=== PATIENT | female | born 1965 | race Caucasian/White ===

== ENCOUNTER 2022-04-26 03:58 | Outpatient (CLI) | payer OTHER, SELFPAY ==
[2022-04-26 12:49] LABS: Abs Immature Grans 0.04 10^3/uL (0.0-0.06); Absolute Basophil Count 0.01 10^3/uL (0.0-0.2); Absolute Lymphocyte Count 1.07 10^3/uL (1.2-3.4); Basophils % 0.1; HCT 35.1 % (36.0-46.0); HGB 11.5 g/dL (11.2-15.7); Immature Grans % 0.4; Lymphocytes % 9.5; MCH 33.3 pg (27.0-33.0); MCHC 32.8 % (32.0-36.0); MCV 102 fL (80-95); MPV 10.9 fL (8.0-11.0); Monocytes % 5.9; Neutrophils % 84.1; Platelet Count 233 10^3/uL (130-400); RBC 3.45 10^6/uL (3.93-5.22); RDW-SD 45.1 fL; WBC 11.28 10^3/uL (4.4-10.8)
[2022-04-26 12:50] LABS: Absolute Monocyte Count 0.67 10^3/uL (0.1-0.8); Absolute Neutrophil Count 9.49 10^3/uL (1.2-6.7)
[2022-04-26 13:15] LABS: ALT 25 U/L (14-59); AST 18 U/L (15-37); Albumin 3.7 g/dL (3.4-5.0); Alkaline Phosphatase 67 U/L (46-116); Anion Gap 5.4 mmol/L (3-11); BUN 13 mg/dL (7-18); Bilirubin, Total 0.4 mg/dL (0.2-1.0); CO2 32.6 mmol/L (21.0-32.0); CREATININE 0.7 mg/dL (0.55-1.02); Calcium 8.7 mg/dL (8.5-10.1); Chloride 100 mmol/L (98-107); Estimated GFR 102.07 (mL/min/1.73m2); Glucose 112 mg/dL (74-106); Sodium 138 mmol/L (136-145); Total Protein 8.4 g/dL (6.4-8.2); Uric Acid 3.3 mg/dL (2.6-6.0)
[2022-04-26 13:28] LABS: Potassium 2.8 mmol/L (3.5-5.1)
== END 2022-04-26 03:59 | disposition home or self-care (01) ==
LOC: LBO 03:58
PROVIDERS: PCP Family Medicine; Visit Provider Internal Medicine Hematology
DX: C90.00 Multiple myeloma not having achieved remission (principal)
CPT/HCPCS: 36415; 80053; 84550; 85025

== ENCOUNTER 2022-05-03 02:24 | Outpatient (CLI) | payer OTHER, SELFPAY ==
[2022-05-03 08:27] LABS: Abs Immature Grans 0.02 10^3/uL (0.0-0.06); Absolute Basophil Count 0.01 10^3/uL (0.0-0.2); Absolute Lymphocyte Count 0.72 10^3/uL (1.2-3.4); Absolute Monocyte Count 0.88 10^3/uL (0.1-0.8); Absolute Neutrophil Count 6.14 10^3/uL (1.2-6.7); Basophils % 0.1; HCT 33.6 % (36.0-46.0); Immature Grans % 0.3; Lymphocytes % 9.3; MCH 33.2 pg (27.0-33.0); MCHC 32.7 % (32.0-36.0); MCV 102 fL (80-95); MPV 10.9 fL (8.0-11.0); Monocytes % 11.3; Platelet Count 252 10^3/uL (130-400); RBC 3.31 10^6/uL (3.93-5.22); RDW 12.2 % (11.7-14.6); RDW-SD 45.4 fL; WBC 7.77 10^3/uL (4.4-10.8)
[2022-05-03 08:45] LABS: ALT 22 U/L (14-59); AST 17 U/L (15-37); Albumin 3.4 g/dL (3.4-5.0); Alkaline Phosphatase 68 U/L (46-116); Anion Gap 5.4 mmol/L (3-11); BUN 13 mg/dL (7-18); Bilirubin, Total 0.4 mg/dL (0.2-1.0); CO2 26.6 mmol/L (21.0-32.0); CREATININE 0.7 mg/dL (0.55-1.02); Calcium 8.6 mg/dL (8.5-10.1); Chloride 105 mmol/L (98-107); Estimated GFR 102.07 (mL/min/1.73m2); Glucose 121 mg/dL (74-106); Potassium 3.5 mmol/L (3.5-5.1); Sodium 137 mmol/L (136-145); Total Protein 7.4 g/dL (6.4-8.2); Uric Acid 2.6 mg/dL (2.6-6.0)
== END 2022-05-03 02:25 | disposition home or self-care (01) ==
LOC: LBO 02:25
PROVIDERS: PCP Family Medicine; Visit Provider Internal Medicine Hematology
DX: C90.00 Multiple myeloma not having achieved remission (principal)
CPT/HCPCS: 36415; 80053; 84550; 85025

== ENCOUNTER 2022-05-17 01:50 | Outpatient (CLI) | payer OTHER, SELFPAY ==
[2022-05-17 08:43] LABS: Absolute Basophil Count 0.03 10^3/uL (0.0-0.2); Absolute Eosinophil Count 0.18 10^3/uL (0.0-0.7); Absolute Lymphocyte Count 1.12 10^3/uL (1.2-3.4); Absolute Monocyte Count 0.19 10^3/uL (0.1-0.8); Absolute Neutrophil Count 1.26 10^3/uL (1.2-6.7); Basophils % 1.1; Eosinophils % 6.5; HCT 37.5 % (36.0-46.0); HGB 11.9 g/dL (11.2-15.7); Lymphocytes % 40.3; MCH 32.5 pg (27.0-33.0); MCHC 31.7 % (32.0-36.0); MCV 103 fL (80-95); MPV 11.4 fL (8.0-11.0); Monocytes % 6.8; Neutrophils % 45.3; Platelet Count 174 10^3/uL (130-400); RBC 3.66 10^6/uL (3.93-5.22); RDW 12.1 % (11.7-14.6); RDW-SD 46.3 fL; WBC 2.78 10^3/uL (4.4-10.8)
[2022-05-17 08:59] LABS: ALT 13 U/L (14-59); AST 11 U/L (15-37); Albumin 3.6 g/dL (3.4-5.0); Alkaline Phosphatase 88 U/L (46-116); Anion Gap 7.6 mmol/L (3-11); BUN 9 mg/dL (7-18); Bilirubin, Total 0.3 mg/dL (0.2-1.0); CO2 28.4 mmol/L (21.0-32.0); CREATININE 0.6 mg/dL (0.55-1.02); Calcium 8.8 mg/dL (8.5-10.1); Chloride 103 mmol/L (98-107); Estimated GFR 105.94 (mL/min/1.73m2); Glucose 91 mg/dL (74-106); Potassium 3.7 mmol/L (3.5-5.1); Sodium 139 mmol/L (136-145); Total Protein 6.8 g/dL (6.4-8.2)
[2022-05-17 09:10] LABS: Diff Comment Agrees w/ Instrument; RBC Morphology Normal
== END 2022-05-17 01:51 | disposition home or self-care (01) ==
LOC: LBO 01:50
PROVIDERS: PCP Family Medicine; Visit Provider Internal Medicine Hematology & Oncology
DX: C90.00 Multiple myeloma not having achieved remission (principal)
CPT/HCPCS: 36415; 80053; 85025

== ENCOUNTER 2022-05-24 11:37 | Outpatient (CLI) | payer OTHER, SELFPAY ==
[2022-05-24 08:17] LABS: Abs Immature Grans 0.01 10^3/uL (0.0-0.06); Absolute Basophil Count 0.06 10^3/uL (0.0-0.2); Absolute Eosinophil Count 0.16 10^3/uL (0.0-0.7); Absolute Lymphocyte Count 0.74 10^3/uL (1.2-3.4); Absolute Monocyte Count 0.58 10^3/uL (0.1-0.8); Absolute Neutrophil Count 2.06 10^3/uL (1.2-6.7); Basophils % 1.7; Eosinophils % 4.4; HCT 40.7 % (36.0-46.0); Immature Grans % 0.3; Lymphocytes % 20.5; MCH 31.9 pg (27.0-33.0); MCHC 31.9 % (32.0-36.0); MCV 100 fL (80-95); MPV 11.4 fL (8.0-11.0); Monocytes % 16.1; Platelet Count 195 10^3/uL (130-400); RBC 4.07 10^6/uL (3.93-5.22); RDW 12.1 % (11.7-14.6); RDW-SD 45.3 fL; WBC 3.61 10^3/uL (4.4-10.8)
[2022-05-24 08:32] LABS: ALT 15 U/L (14-59); AST 8 U/L (15-37); Albumin 3.4 g/dL (3.4-5.0); Alkaline Phosphatase 83 U/L (46-116); Anion Gap 6.6 mmol/L (3-11); BUN 9 mg/dL (7-18); Bilirubin, Total 0.4 mg/dL (0.2-1.0); CO2 26.4 mmol/L (21.0-32.0); CREATININE 0.6 mg/dL (0.55-1.02); Calcium 8.1 mg/dL (8.5-10.1); Chloride 103 mmol/L (98-107); Estimated GFR 105.94 (mL/min/1.73m2); Glucose 97 mg/dL (74-106); Potassium 3.6 mmol/L (3.5-5.1); Sodium 136 mmol/L (136-145); Total Protein 6.4 g/dL (6.4-8.2)
== END 2022-05-24 11:38 | disposition home or self-care (01) ==
LOC: LBO 11:47
PROVIDERS: PCP Family Medicine; Visit Provider Internal Medicine Hematology & Oncology
DX: C90.00 Multiple myeloma not having achieved remission (principal)
CPT/HCPCS: 36415; 80053; 85025

== ENCOUNTER 2022-05-31 12:31 | Outpatient (CLI) | payer OTHER, SELFPAY ==
[2022-05-31 08:12] LABS: Absolute Basophil Count 0.04 10^3/uL (0.0-0.2); Absolute Eosinophil Count 0.19 10^3/uL (0.0-0.7); Absolute Lymphocyte Count 0.81 10^3/uL (1.2-3.4); Absolute Monocyte Count 0.41 10^3/uL (0.1-0.8); Absolute Neutrophil Count 0.96 10^3/uL (1.2-6.7); Basophils % 1.7; Eosinophils % 7.9; HCT 39.8 % (36.0-46.0); HGB 12.5 g/dL (11.2-15.7); Lymphocytes % 33.6; MCH 31.6 pg (27.0-33.0); MCHC 31.4 % (32.0-36.0); MCV 101 fL (80-95); MPV 11.5 fL (8.0-11.0); Neutrophils % 39.8; Platelet Count 172 10^3/uL (130-400); RBC 3.95 10^6/uL (3.93-5.22); RDW-SD 45.1 fL; WBC 2.41 10^3/uL (4.4-10.8)
[2022-05-31 08:28] LABS: ALT 15 U/L (14-59); AST 10 U/L (15-37); Albumin 3.3 g/dL (3.4-5.0); Alkaline Phosphatase 72 U/L (46-116); Anion Gap 5.7 mmol/L (3-11); BUN 7 mg/dL (7-18); Bilirubin, Total 0.4 mg/dL (0.2-1.0); CO2 29.3 mmol/L (21.0-32.0); CREATININE 0.6 mg/dL (0.55-1.02); Calcium 8.4 mg/dL (8.5-10.1); Chloride 107 mmol/L (98-107); Diff Comment Diff Reviewed; Estimated GFR 105.94 (mL/min/1.73m2); Glucose 113 mg/dL (74-106); Potassium 3.3 mmol/L (3.5-5.1); RBC Morphology Normal; Sodium 142 mmol/L (136-145); Total Protein 6.1 g/dL (6.4-8.2)
== END 2022-05-31 12:32 | disposition home or self-care (01) ==
LOC: LBO 12:34
PROVIDERS: PCP Family Medicine; Visit Provider Internal Medicine Hematology & Oncology
DX: C90.00 Multiple myeloma not having achieved remission (principal)
CPT/HCPCS: 36415; 80053; 85025

== ENCOUNTER 2022-10-18 02:56 | Outpatient (CLI) | payer OTHER, SELFPAY ==
[2022-10-18 09:33] LABS: Abs Immature Grans 0.01 10^3/uL (0.0-0.06); Absolute Basophil Count 0.08 10^3/uL (0.0-0.2); Absolute Lymphocyte Count 0.33 10^3/uL (1.2-3.4); Absolute Monocyte Count 0.54 10^3/uL (0.1-0.8); Absolute Neutrophil Count 1.22 10^3/uL (1.2-6.7); Basophils % 3.7; HCT 36.1 % (36.0-46.0); HGB 12.2 g/dL (11.2-15.7); Immature Grans % 0.5; Lymphocytes % 15.1; MCH 32.6 pg (27.0-33.0); MCHC 33.8 % (32.0-36.0); MCV 97 fL (80-95); MPV 10.4 fL (8.0-11.0); Monocytes % 24.8; Neutrophils % 55.9; Platelet Count 252 10^3/uL (130-400); RBC 3.74 10^6/uL (3.93-5.22); RDW 14.3 % (11.7-14.6); RDW-SD 49.6 fL; WBC 2.18 10^3/uL (4.4-10.8)
[2022-10-18 09:47] LABS: ALT 25 U/L (14-59); AST 19 U/L (15-37); Albumin 3.2 g/dL (3.4-5.0); Alkaline Phosphatase 69 U/L (46-116); Anion Gap 6.6 mmol/L (3-11); BUN 8 mg/dL (7-18); Bilirubin, Total 0.2 mg/dL (0.2-1.0); CO2 29.4 mmol/L (21.0-32.0); CREATININE 0.6 mg/dL (0.55-1.02); Calcium 8.6 mg/dL (8.5-10.1); Chloride 104 mmol/L (98-107); Estimated GFR 105.94 (mL/min/1.73m2); Glucose 101 mg/dL (74-106); Potassium 3.5 mmol/L (3.5-5.1); Sodium 140 mmol/L (136-145); Total Protein 6.2 g/dL (6.4-8.2)
== END 2022-10-18 02:57 | disposition home or self-care (01) ==
LOC: LBO 02:56
PROVIDERS: PCP Family Medicine; Visit Provider Internal Medicine Hematology & Oncology
DX: C90.00 Multiple myeloma not having achieved remission (principal)
CPT/HCPCS: 36415; 80053; 85025

== ENCOUNTER 2022-10-25 09:55 | Outpatient (CLI) | payer OTHER, SELFPAY ==
[2022-10-25 08:27] LABS: Abs Immature Grans 0.01 10^3/uL (0.0-0.06); Absolute Lymphocyte Count 0.99 10^3/uL (1.2-3.4); Absolute Monocyte Count 0.63 10^3/uL (0.1-0.8); Basophils % 2.8; Eosinophils % 2.8; HCT 37.5 % (36.0-46.0); HGB 12.3 g/dL (11.2-15.7); Immature Grans % 0.3; Lymphocytes % 27.3; MCH 32.1 pg (27.0-33.0); MCHC 32.8 % (32.0-36.0); MCV 98 fL (80-95); MPV 9.7 fL (8.0-11.0); Monocytes % 17.4; Neutrophils % 49.4; Platelet Count 227 10^3/uL (130-400); RBC 3.83 10^6/uL (3.93-5.22); RDW 14.1 % (11.7-14.6); RDW-SD 50.4 fL; WBC 3.63 10^3/uL (4.4-10.8)
[2022-10-25 08:30] LABS: Absolute Neutrophil Count 1.79 10^3/uL (1.2-6.7)
[2022-10-25 08:44] LABS: ALT 23 U/L (14-59); AST 15 U/L (15-37); Albumin 3.4 g/dL (3.4-5.0); Alkaline Phosphatase 63 U/L (46-116); Anion Gap 6.4 mmol/L (3-11); BUN 7 mg/dL (7-18); Bilirubin, Total 0.2 mg/dL (0.2-1.0); CO2 28.6 mmol/L (21.0-32.0); CREATININE 0.5 mg/dL (0.55-1.02); Calcium 8.8 mg/dL (8.5-10.1); Chloride 108 mmol/L (98-107); Glucose 101 mg/dL (74-106); Potassium 3.7 mmol/L (3.5-5.1); Sodium 143 mmol/L (136-145); Total Protein 6.2 g/dL (6.4-8.2)
== END 2022-10-25 09:56 | disposition home or self-care (01) ==
LOC: LBO 09:56
PROVIDERS: PCP Family Medicine; Visit Provider Internal Medicine Hematology & Oncology
DX: C90.00 Multiple myeloma not having achieved remission (principal)
CPT/HCPCS: 36415; 80053; 85025

== ENCOUNTER 2022-11-08 10:05 | Outpatient (CLI) | payer OTHER, SELFPAY ==
[2022-11-08 09:26] LABS: Abs Immature Grans 0.01 10^3/uL (0.0-0.06); Absolute Basophil Count 0.06 10^3/uL (0.0-0.2); Absolute Eosinophil Count 0.28 10^3/uL (0.0-0.7); Absolute Lymphocyte Count 0.78 10^3/uL (1.2-3.4); Absolute Monocyte Count 0.49 10^3/uL (0.1-0.8); Absolute Neutrophil Count 2.65 10^3/uL (1.2-6.7); Basophils % 1.4; Eosinophils % 6.6; HCT 39.2 % (36.0-46.0); HGB 12.9 g/dL (11.2-15.7); Immature Grans % 0.2; Lymphocytes % 18.3; MCH 32.3 pg (27.0-33.0); MCHC 32.9 % (32.0-36.0); MCV 98 fL (80-95); MPV 9.7 fL (8.0-11.0); Monocytes % 11.5; Platelet Count 227 10^3/uL (130-400); RBC 3.99 10^6/uL (3.93-5.22); RDW 14.8 % (11.7-14.6); RDW-SD 54.2 fL; WBC 4.27 10^3/uL (4.4-10.8)
[2022-11-08 09:44] LABS: ALT 19 U/L (14-59); AST 16 U/L (15-37); Albumin 3.5 g/dL (3.4-5.0); Alkaline Phosphatase 64 U/L (46-116); Anion Gap 5.6 mmol/L (3-11); BUN 9 mg/dL (7-18); Bilirubin, Total 0.4 mg/dL (0.2-1.0); CO2 28.4 mmol/L (21.0-32.0); CREATININE 0.6 mg/dL (0.55-1.02); Calcium 8.8 mg/dL (8.5-10.1); Chloride 106 mmol/L (98-107); Estimated GFR 105.94 (mL/min/1.73m2); Glucose 84 mg/dL (74-106); Potassium 4.1 mmol/L (3.5-5.1); Sodium 140 mmol/L (136-145); Total Protein 6.2 g/dL (6.4-8.2)
== END 2022-11-08 10:06 | disposition home or self-care (01) ==
PROVIDERS: PCP Family Medicine; Visit Provider Internal Medicine Hematology & Oncology
DX: C90.00 Multiple myeloma not having achieved remission (principal)
CPT/HCPCS: 36415; 80053; 85025

== ENCOUNTER 2022-11-29 04:11 | Outpatient (CLI) | payer OTHER, SELFPAY ==
[2022-11-29 08:54] LABS: Abs Immature Grans 0.01 10^3/uL (0.0-0.06); Absolute Basophil Count 0.05 10^3/uL (0.0-0.2); Absolute Eosinophil Count 0.13 10^3/uL (0.0-0.7); Absolute Lymphocyte Count 0.67 10^3/uL (1.2-3.4); Absolute Monocyte Count 0.46 10^3/uL (0.1-0.8); Absolute Neutrophil Count 2.62 10^3/uL (1.2-6.7); Basophils % 1.3; Eosinophils % 3.3; HCT 40.2 % (36.0-46.0); HGB 13.6 g/dL (11.2-15.7); Immature Grans % 0.3; MCH 33.3 pg (27.0-33.0); MCHC 33.8 % (32.0-36.0); MCV 98 fL (80-95); MPV 9.6 fL (8.0-11.0); Monocytes % 11.7; Neutrophils % 66.4; Platelet Count 207 10^3/uL (130-400); RBC 4.09 10^6/uL (3.93-5.22); RDW 13.4 % (11.7-14.6); RDW-SD 48.8 fL; WBC 3.94 10^3/uL (4.4-10.8)
[2022-11-29 09:18] LABS: ALT 18 U/L (14-59); AST 15 U/L (15-37); Albumin 3.7 g/dL (3.4-5.0); Alkaline Phosphatase 62 U/L (46-116); Anion Gap 7.4 mmol/L (3-11); BUN 9 mg/dL (7-18); Bilirubin, Total 0.6 mg/dL (0.2-1.0); CO2 26.6 mmol/L (21.0-32.0); CREATININE 0.7 mg/dL (0.55-1.02); Calcium 9.3 mg/dL (8.5-10.1); Chloride 103 mmol/L (98-107); Estimated GFR 102.07 (mL/min/1.73m2); Glucose 99 mg/dL (74-106); Potassium 3.9 mmol/L (3.5-5.1); Sodium 137 mmol/L (136-145); Total Protein 6.2 g/dL (6.4-8.2)
== END 2022-11-29 04:12 | disposition home or self-care (01) ==
PROVIDERS: PCP Family Medicine; Visit Provider Internal Medicine Hematology & Oncology
DX: C90.00 Multiple myeloma not having achieved remission (principal)
CPT/HCPCS: 36415; 80053; 85025

== ENCOUNTER 2022-12-27 13:00 | Outpatient (CLI) | payer OTHER, SELFPAY ==
[2022-12-27 08:08] LABS: Abs Immature Grans 0.01 10^3/uL (0.0-0.06); Absolute Basophil Count 0.04 10^3/uL (0.0-0.2); Absolute Eosinophil Count 0.11 10^3/uL (0.0-0.7); Absolute Lymphocyte Count 1.05 10^3/uL (1.2-3.4); Absolute Monocyte Count 0.59 10^3/uL (0.1-0.8); Absolute Neutrophil Count 2.68 10^3/uL (1.2-6.7); Basophils % 0.9; Eosinophils % 2.5; HCT 41.8 % (36.0-46.0); Immature Grans % 0.2; Lymphocytes % 23.4; MCH 32.9 pg (27.0-33.0); MCHC 33.5 % (32.0-36.0); MCV 98 fL (80-95); MPV 9.5 fL (8.0-11.0); Monocytes % 13.2; Neutrophils % 59.8; Platelet Count 248 10^3/uL (130-400); RBC 4.25 10^6/uL (3.93-5.22); RDW 13.2 % (11.7-14.6); WBC 4.48 10^3/uL (4.4-10.8)
[2022-12-27 08:26] LABS: ALT 20 U/L (14-59); AST 12 U/L (15-37); Albumin 3.7 g/dL (3.4-5.0); Alkaline Phosphatase 64 U/L (46-116); Anion Gap 9.5 mmol/L (3-11); BUN 8 mg/dL (7-18); Bilirubin, Total 0.4 mg/dL (0.2-1.0); CO2 27.5 mmol/L (21.0-32.0); CREATININE 0.7 mg/dL (0.55-1.02); Chloride 104 mmol/L (98-107); Estimated GFR 102.07 (mL/min/1.73m2); Glucose 83 mg/dL (74-106); Potassium 3.7 mmol/L (3.5-5.1); Sodium 141 mmol/L (136-145); Total Protein 6.5 g/dL (6.4-8.2)
== END 2022-12-27 13:01 | disposition home or self-care (01) ==
LOC: LBO 13:01
PROVIDERS: PCP Family Medicine; Visit Provider Internal Medicine Hematology & Oncology
DX: C90.00 Multiple myeloma not having achieved remission (principal)
CPT/HCPCS: 36415; 80053; 85025

== ENCOUNTER 2023-02-21 13:15 | Outpatient (CLI) | payer OTHER, SELFPAY ==
[2023-02-21 09:00] LABS: Abs Immature Grans 0.01 10^3/uL (0.0-0.06); Absolute Basophil Count 0.08 10^3/uL (0.0-0.2); Absolute Eosinophil Count 0.28 10^3/uL (0.0-0.7); Absolute Lymphocyte Count 0.57 10^3/uL (1.2-3.4); Absolute Neutrophil Count 3.79 10^3/uL (1.2-6.7); Basophils % 1.4; Eosinophils % 4.9; HCT 44.3 % (36.0-46.0); HGB 14.6 g/dL (11.2-15.7); Immature Grans % 0.2; Lymphocytes % 9.9; MCV 100 fL (80-95); MPV 9.6 fL (8.0-11.0); Monocytes % 17.5; Neutrophils % 66.1; Platelet Count 161 10^3/uL (130-400); RBC 4.42 10^6/uL (3.93-5.22); RDW 12.6 % (11.7-14.6); RDW-SD 47.3 fL; WBC 5.73 10^3/uL (4.4-10.8)
[2023-02-21 09:15] LABS: ALT 30 U/L (14-59); AST 30 U/L (15-37); Albumin 3.8 g/dL (3.4-5.0); Alkaline Phosphatase 65 U/L (46-116); Anion Gap 6.6 mmol/L (3-11); BUN 8 mg/dL (7-18); Bilirubin, Total 0.6 mg/dL (0.2-1.0); CO2 28.4 mmol/L (21.0-32.0); CREATININE 0.8 mg/dL (0.55-1.02); Calcium 9.1 mg/dL (8.5-10.1); Chloride 102 mmol/L (98-107); Estimated GFR 86.42 (mL/min/1.73m2); Glucose 104 mg/dL (74-106); Potassium 4.1 mmol/L (3.5-5.1); Sodium 137 mmol/L (136-145)
[2023-02-22 09:58] LABS: IgA 51 mg/dL (85-499); IgG 387 mg/dL (610-1616); IgM 30 mg/dL (35-242); Kappa Free Light Chain 0.93 mg/dL (0.33-1.94); Lambda Free Light Chain 0.85 mg/dL (0.57-2.63)
[2023-02-22 13:30] LABS: Albumin 64.9 % (55.8-66.1); Albumin g/dL 4.2 g/dL (3.6-5.2); Total Protein 6.4 g/dL (6.3-8.2)
== END 2023-02-21 13:16 | disposition home or self-care (01) ==
LOC: LBO 13:16
PROVIDERS: PCP Family Medicine; Visit Provider Internal Medicine Hematology & Oncology
DX: C90.01 Multiple myeloma in remission (principal)
CPT/HCPCS: 36415; 80053; 82784; 83883; 84165; 85025

== ENCOUNTER 2023-03-28 08:30 | Outpatient (CLI) | payer OTHER, SELFPAY ==
[2023-03-28 08:22] LABS: Absolute Basophil Count 0.11 10^3/uL (0.0-0.2); Absolute Eosinophil Count 0.11 10^3/uL (0.0-0.7); Absolute Lymphocyte Count 1.26 10^3/uL (1.2-3.4); Absolute Monocyte Count 0.46 10^3/uL (0.1-0.8); Absolute Neutrophil Count 1.98 10^3/uL (1.2-6.7); Basophils % 2.8; Eosinophils % 2.8; HCT 43.7 % (36.0-46.0); HGB 14.6 g/dL (11.2-15.7); Lymphocytes % 32.1; MCH 32.7 pg (27.0-33.0); MCHC 33.4 % (32.0-36.0); MCV 98 fL (80-95); MPV 9.6 fL (8.0-11.0); Monocytes % 11.7; Neutrophils % 50.6; Platelet Count 271 10^3/uL (130-400); RBC 4.47 10^6/uL (3.93-5.22); RDW 12.8 % (11.7-14.6); RDW-SD 46.5 fL; WBC 3.92 10^3/uL (4.4-10.8)
[2023-03-28 08:38] LABS: ALT 21 U/L (14-59); AST 14 U/L (15-37); Albumin 3.7 g/dL (3.4-5.0); Alkaline Phosphatase 58 U/L (46-116); Anion Gap 4.1 mmol/L (3-11); BUN 13 mg/dL (7-18); Bilirubin, Total 0.3 mg/dL (0.2-1.0); CO2 29.9 mmol/L (21.0-32.0); CREATININE 0.8 mg/dL (0.55-1.02); Chloride 106 mmol/L (98-107); Estimated GFR 86.42 (mL/min/1.73m2); Glucose 103 mg/dL (74-106); Sodium 140 mmol/L (136-145); Total Protein 6.7 g/dL (6.4-8.2)
[2023-03-29 10:17] LABS: IgA 49 mg/dL (85-499); IgG 417 mg/dL (610-1616); IgM 23 mg/dL (35-242); Kappa Free Light Chain 0.89 mg/dL (0.33-1.94); Lambda Free Light Chain 0.73 mg/dL (0.57-2.63)
[2023-03-29 13:11] LABS: Albumin 71.3 % (55.8-66.1); Albumin g/dL 4.6 g/dL (3.6-5.2); Total Protein 6.4 g/dL (6.3-8.2)
== END 2023-03-28 08:31 | disposition home or self-care (01) ==
LOC: LBO 08:30
PROVIDERS: PCP Family Medicine; Visit Provider Nurse Practitioner Family
DX: C90.01 Multiple myeloma in remission (principal)
CPT/HCPCS: 36415; 80053; 82784; 83883; 84165; 85025

== ENCOUNTER 2023-04-24 14:46 | Outpatient (CLI) | payer BC, SELFPAY ==
[2023-04-24 15:10] LABS: Absolute Basophil Count 0.11 10^3/uL (0.0-0.2); Absolute Eosinophil Count 0.07 10^3/uL (0.0-0.7); Absolute Lymphocyte Count 1.54 10^3/uL (1.2-3.4); Absolute Monocyte Count 0.57 10^3/uL (0.1-0.8); Absolute Neutrophil Count 2.93 10^3/uL (1.2-6.7); Basophils % 2.1; Eosinophils % 1.3; HCT 42.2 % (36.0-46.0); HGB 14.1 g/dL (11.2-15.7); Lymphocytes % 29.5; MCH 33.5 pg (27.0-33.0); MCHC 33.4 % (32.0-36.0); MCV 100 fL (80-95); MPV 9.9 fL (8.0-11.0); Monocytes % 10.9; Neutrophils % 56.2; Platelet Count 258 10^3/uL (130-400); RBC 4.21 10^6/uL (3.93-5.22); RDW 13.1 % (11.7-14.6); RDW-SD 48.1 fL; WBC 5.22 10^3/uL (4.4-10.8)
[2023-04-24 15:30] LABS: ALT 21 U/L (14-59); AST 13 U/L (15-37); Albumin 3.8 g/dL (3.4-5.0); Alkaline Phosphatase 41 U/L (46-116); Anion Gap 7.5 mmol/L (3-11); BUN 12 mg/dL (7-18); Bilirubin, Total 0.3 mg/dL (0.2-1.0); CO2 28.5 mmol/L (21.0-32.0); CREATININE 0.8 mg/dL (0.55-1.02); Calcium 9.2 mg/dL (8.5-10.1); Chloride 106 mmol/L (98-107); Estimated GFR 86.42 (mL/min/1.73m2); Glucose 102 mg/dL (74-106); Potassium 3.7 mmol/L (3.5-5.1); Sodium 142 mmol/L (136-145); Total Protein 6.7 g/dL (6.4-8.2)
[2023-04-25 10:16] LABS: IgA 55 mg/dL (85-499); IgG 471 mg/dL (610-1616); IgM 23 mg/dL (35-242); Kappa Free Light Chain 1.04 mg/dL (0.33-1.94); Lambda Free Light Chain 0.83 mg/dL (0.57-2.63)
[2023-04-25 13:35] LABS: Albumin 70.3 % (55.8-66.1); Albumin g/dL 4.6 g/dL (3.6-5.2); Total Protein 6.5 g/dL (6.3-8.2)
== END 2023-04-24 14:47 | disposition home or self-care (01) ==
PROVIDERS: PCP Family Medicine; Visit Provider Nurse Practitioner Family
DX: C90.01 Multiple myeloma in remission (principal)
CPT/HCPCS: 36415; 80053; 82784; 83883; 84165; 85025

== ENCOUNTER 2023-07-17 14:11 | Outpatient (CLI) | payer BC, SELFPAY ==
[2023-07-17 12:01] LABS: Abs Immature Grans 0.01 10^3/uL (0.0-0.06); Absolute Eosinophil Count 0.21 10^3/uL (0.0-0.7); Absolute Lymphocyte Count 1.08 10^3/uL (1.2-3.4); Absolute Monocyte Count 0.43 10^3/uL (0.1-0.8); Absolute Neutrophil Count 2.49 10^3/uL (1.2-6.7); Basophils % 2.3; Eosinophils % 4.9; HCT 43.1 % (36.0-46.0); HGB 14.2 g/dL (11.2-15.7); Immature Grans % 0.2; MCH 33.6 pg (27.0-33.0); MCHC 32.9 % (32.0-36.0); MCV 102 fL (80-95); MPV 9.8 fL (8.0-11.0); Neutrophils % 57.6; Platelet Count 197 10^3/uL (130-400); RBC 4.23 10^6/uL (3.93-5.22); RDW-SD 49.1 fL; WBC 4.32 10^3/uL (4.4-10.8)
[2023-07-17 12:16] LABS: ALT 20 U/L (14-59); AST 11 U/L (15-37); Albumin 3.4 g/dL (3.4-5.0); Alkaline Phosphatase 51 U/L (46-116); BUN 15 mg/dL (7-18); Bilirubin, Total 0.5 mg/dL (0.2-1.0); CREATININE 0.7 mg/dL (0.55-1.02); Calcium 8.6 mg/dL (8.5-10.1); Chloride 107 mmol/L (98-107); Estimated GFR 101.44 (mL/min/1.73m2); Glucose 94 mg/dL (74-106); Potassium 4.4 mmol/L (3.5-5.1); Sodium 142 mmol/L (136-145); Total Protein 6.4 g/dL (6.4-8.2)
[2023-07-18 08:32] LABS: IgA 81 mg/dL (85-499); IgG 619 mg/dL (610-1616); IgM 42 mg/dL (35-242); Lambda Free Light Chain 1.11 mg/dL (0.57-2.63)
[2023-07-18 12:59] LABS: Albumin 65.6 % (55.8-66.1); Total Protein 6.1 g/dL (6.3-8.2)
== END 2023-07-17 14:12 | disposition home or self-care (01) ==
LOC: LBO 14:11
PROVIDERS: PCP Family Medicine; Visit Provider Nurse Practitioner Family
DX: C90.01 Multiple myeloma in remission (principal)
CPT/HCPCS: 36415; 80053; 82784; 83883; 84165; 85025

== ENCOUNTER 2023-10-17 13:23 | Outpatient (CLI) | payer BC, SELFPAY ==
[2023-10-17 10:45] LABS: Absolute Basophil Count 0.07 10^3/uL (0.0-0.2); Absolute Eosinophil Count 0.18 10^3/uL (0.0-0.7); Absolute Lymphocyte Count 1.64 10^3/uL (1.2-3.4); Absolute Monocyte Count 0.49 10^3/uL (0.1-0.8); Absolute Neutrophil Count 1.71 10^3/uL (1.2-6.7); Basophils % 1.7 %; Eosinophils % 4.4 %; HCT 43.7 % (36.0-46.0); HGB 14.3 g/dL (11.2-15.7); Lymphocytes % 40.1 %; MCH 33.4 pg (27.0-33.0); MCHC 32.7 % (32.0-36.0); MCV 102 fL (80-95); MPV 9.8 fL (8.0-11.0); Neutrophils % 41.8 %; Platelet Count 256 10^3/uL (130-400); RBC 4.28 10^6/uL (3.93-5.22); RDW 13.2 % (11.7-14.6); RDW-SD 49.3 fL; WBC 4.09 10^3/uL (4.4-10.8)
[2023-10-17 11:01] LABS: ALT 22 U/L (14-59); AST 14 U/L (15-37); Albumin 3.5 g/dL (3.4-5.0); Alkaline Phosphatase 56 U/L (46-116); BUN 12 mg/dL (7-18); Bilirubin, Total 0.44 mg/dL (0.2-1.0); CREATININE 0.8 mg/dL (0.55-1.02); Calcium 8.8 mg/dL (8.5-10.1); Chloride 106 mmol/L (98-107); Estimated GFR 86.42 (mL/min/1.73m2); Glucose 78 mg/dL (74-106); Potassium 4.5 mmol/L (3.5-5.1); Sodium 142 mmol/L (136-145); Total Protein 6.7 g/dL (6.4-8.2)
[2023-10-18 08:42] LABS: IgA 111 mg/dL (85-499); IgG 733 mg/dL (610-1616); IgM 43 mg/dL (35-242); Lambda Free Light Chain 1.18 mg/dL (0.57-2.63)
[2023-10-18 14:49] LABS: Albumin 64.8 % (55.8-66.1); Albumin g/dL 4.1 g/dL (3.6-5.2); Total Protein 6.4 g/dL (6.3-8.2)
== END 2023-10-17 13:24 | disposition home or self-care (01) ==
LOC: LBO 13:32
PROVIDERS: PCP Family Medicine; Visit Provider Nurse Practitioner Family
DX: C90.01 Multiple myeloma in remission (principal)
CPT/HCPCS: 36415; 80053; 82784; 83883; 84165; 85025

== ENCOUNTER 2024-01-16 16:21 | Outpatient (CLI) | payer BC, SELFPAY ==
[2024-01-16 11:21] LABS: Abs Immature Grans 0.02 10^3/uL (0.0-0.06); Absolute Basophil Count 0.08 10^3/uL (0.0-0.2); Absolute Eosinophil Count 0.11 10^3/uL (0.0-0.7); Absolute Lymphocyte Count 1.08 10^3/uL (1.2-3.4); Absolute Monocyte Count 0.63 10^3/uL (0.1-0.8); Absolute Neutrophil Count 4.35 10^3/uL (1.2-6.7); Basophils % 1.3 %; Eosinophils % 1.8 %; HCT 44.8 % (36.0-46.0); HGB 14.8 g/dL (11.2-15.7); Immature Grans % 0.3 %; Lymphocytes % 17.2 %; MCH 33.8 pg (27.0-33.0); MCV 102 fL (80-95); MPV 9.6 fL (8.0-11.0); Neutrophils % 69.4 %; Platelet Count 247 10^3/uL (130-400); RBC 4.38 10^6/uL (3.93-5.22); RDW 12.4 % (11.7-14.6); RDW-SD 47.5 fL; WBC 6.27 10^3/uL (4.4-10.8)
[2024-01-16 11:53] LABS: ALT 28 U/L (14-59); AST 13 U/L (15-37); Albumin 3.6 g/dL (3.4-5.0); Alkaline Phosphatase 70 U/L (46-116); Anion Gap 7.6 mmol/L (3-11); BUN 12 mg/dL (7-18); Bilirubin, Total 0.56 mg/dL (0.2-1.0); CO2 29.4 mmol/L (21.0-32.0); CREATININE 0.8 mg/dL (0.55-1.02); Calcium 9.1 mg/dL (8.5-10.1); Chloride 105 mmol/L (98-107); Estimated GFR 86.42 (mL/min/1.73m2); Glucose 93 mg/dL (74-106); Sodium 142 mmol/L (136-145); Total Protein 7.3 g/dL (6.4-8.2)
[2024-01-17 08:35] LABS: IgA 155 mg/dL (85-499); IgG 855 mg/dL (610-1616); IgM 82 mg/dL (35-242); Kappa Free Light Chain 1.56 mg/dL (0.33-1.94)
[2024-01-17 15:08] LABS: Albumin 61.9 % (55.8-66.1); Albumin g/dL 4.1 g/dL (3.6-5.2); Comment (See Note); Total Protein 6.7 g/dL (6.3-8.2)
[2024-01-17 16:03] LABS: Immunotyping, Serum (See Note)
== END 2024-01-16 16:22 | disposition home or self-care (01) ==
LOC: LBO 01-17 16:22
PROVIDERS: PCP Family Medicine; Visit Provider Nurse Practitioner Family
DX: C90.01 Multiple myeloma in remission (principal)
CPT/HCPCS: 36415; 80053; 82784; 83883; 84165; 85025; 86320

== ENCOUNTER 2024-04-13 13:52 | Outpatient (CLI) | payer OTHER, SELFPAY ==
[2024-04-13 13:26] LABS: Abs Immature Grans 0.01 10^3/uL (0.0-0.06); Absolute Basophil Count 0.13 10^3/uL (0.0-0.2); Absolute Eosinophil Count 0.29 10^3/uL (0.0-0.7); Absolute Lymphocyte Count 1.21 10^3/uL (1.2-3.4); Absolute Monocyte Count 0.32 10^3/uL (0.1-0.8); Absolute Neutrophil Count 2.82 10^3/uL (1.2-6.7); Basophils % 2.7 %; Eosinophils % 6.1 %; HGB 14.7 g/dL (11.2-15.7); Immature Grans % 0.2 %; Lymphocytes % 25.3 %; MCH 33.9 pg (27.0-33.0); MCHC 33.4 % (32.0-36.0); MCV 101 fL (80-95); MPV 9.5 fL (8.0-11.0); Monocytes % 6.7 %; Platelet Count 276 10^3/uL (130-400); RBC 4.34 10^6/uL (3.93-5.22); RDW 12.4 % (11.7-14.6); RDW-SD 46.7 fL; WBC 4.78 10^3/uL (4.4-10.8)
[2024-04-13 13:52] LABS: ALT 22 U/L (14-59); AST 14 U/L (15-37); Albumin 3.7 g/dL (3.4-5.0); Alkaline Phosphatase 68 U/L (46-116); Anion Gap 3.4 mmol/L (3-11); BUN 11 mg/dL (7-18); Bilirubin, Total 0.36 mg/dL (0.2-1.0); CO2 30.6 mmol/L (21.0-32.0); Calcium 9.1 mg/dL (8.5-10.1); Chloride 106 mmol/L (98-107); Estimated GFR 65.71 (mL/min/1.73m2); Glucose 102 mg/dL (74-106); Potassium 4.1 mmol/L (3.5-5.1); Sodium 140 mmol/L (136-145)
[2024-04-14 10:40] LABS: IgA 164 mg/dL (85-499); IgG 849 mg/dL (610-1616); IgM 58 mg/dL (35-242)
[2024-04-14 12:39] LABS: Albumin 62.1 % (55.8-66.1); Albumin g/dL 4.1 g/dL (3.6-5.2); Total Protein 6.6 g/dL (6.3-8.2)
== END 2024-04-13 13:53 | disposition home or self-care (01) ==
LOC: LBO 13:52
PROVIDERS: PCP Family Medicine; Visit Provider Nurse Practitioner Family
DX: C90.01 Multiple myeloma in remission (principal)
CPT/HCPCS: 36415; 80053; 82784; 83883; 84165; 85025

== ENCOUNTER 2024-07-10 13:34 | Outpatient (CLI) | payer OTHER, SELFPAY ==
[2024-07-10 13:56] LABS: Abs Immature Grans 0.01 10^3/uL (0.0-0.06); Absolute Eosinophil Count 0.18 10^3/uL (0.0-0.7); Absolute Lymphocyte Count 1.21 10^3/uL (1.2-3.4); Absolute Monocyte Count 0.26 10^3/uL (0.1-0.8); Absolute Neutrophil Count 2.18 10^3/uL (1.2-6.7); Basophils % 2.5 %; Eosinophils % 4.6 %; HCT 41.6 % (36.0-46.0); HGB 13.9 g/dL (11.2-15.7); Immature Grans % 0.3 %; Lymphocytes % 30.7 %; MCH 33.9 pg (27.0-33.0); MCHC 33.4 % (32.0-36.0); MCV 102 fL (80-95); MPV 9.8 fL (8.0-11.0); Monocytes % 6.6 %; Neutrophils % 55.3 %; Platelet Count 217 10^3/uL (130-400); RDW 12.8 % (11.7-14.6); RDW-SD 47.8 fL; WBC 3.94 10^3/uL (4.4-10.8)
[2024-07-10 14:24] LABS: ALT 21 U/L (14-59); AST 12 U/L (15-37); Albumin 3.6 g/dL (3.4-5.0); Alkaline Phosphatase 60 U/L (46-116); Anion Gap 5.6 mmol/L (3-11); BUN 13 mg/dL (7-18); Bilirubin, Total 0.5 mg/dL (0.2-1.0); CO2 29.4 mmol/L (21.0-32.0); CREATININE 0.7 mg/dL (0.55-1.02); Calcium 9.6 mg/dL (8.5-10.1); Chloride 107 mmol/L (98-107); Estimated GFR 100.81 (mL/min/1.73m2); Glucose 91 mg/dL (74-106); Potassium 4.1 mmol/L (3.5-5.1); Sodium 142 mmol/L (136-145); Total Protein 6.7 g/dL (6.4-8.2)
[2024-07-13 08:27] LABS: IgA 186 mg/dL (85-499); IgG 798 mg/dL (610-1616); IgM 55 mg/dL (35-242); Kappa Free Light Chain 1.39 mg/dL (0.33-1.94); Lambda Free Light Chain 1.21 mg/dL (0.57-2.63)
[2024-07-13 12:47] LABS: Albumin 63.4 % (55.8-66.1); Albumin g/dL 4.1 g/dL (3.6-5.2); Total Protein 6.4 g/dL (6.3-8.2)
== END 2024-07-10 13:35 | disposition home or self-care (01) ==
LOC: LBO 13:34
PROVIDERS: PCP Family Medicine; Visit Provider Nurse Practitioner Family
DX: C90.01 Multiple myeloma in remission (principal)
CPT/HCPCS: 36415; 80053; 82784; 83883; 84165; 85025

== ENCOUNTER 2024-09-29 12:20 | Outpatient (CLI) | payer OTHER, SELFPAY ==
[2024-09-29 12:28] LABS: Absolute Basophil Count 0.08 10^3/uL (0.0-0.2); Absolute Eosinophil Count 0.13 10^3/uL (0.0-0.7); Absolute Lymphocyte Count 1.58 10^3/uL (1.2-3.4); Absolute Monocyte Count 0.43 10^3/uL (0.1-0.8); Absolute Neutrophil Count 2.17 10^3/uL (1.2-6.7); Basophils % 1.8 %; HGB 13.4 g/dL (11.2-15.7); MCH 34.3 pg (27.0-33.0); MCHC 33.5 % (32.0-36.0); MCV 102 fL (80-95); MPV 9.7 fL (8.0-11.0); Monocytes % 9.8 %; Neutrophils % 49.4 %; Platelet Count 222 10^3/uL (130-400); RBC 3.91 10^6/uL (3.93-5.22); RDW 12.9 % (11.7-14.6); RDW-SD 48.5 fL; WBC 4.39 10^3/uL (4.4-10.8)
[2024-09-29 13:58] LABS: ALT 33 U/L (14-59); AST 21 U/L (15-37); Albumin 3.4 g/dL (3.4-5.0); Alkaline Phosphatase 60 U/L (46-116); Anion Gap 4.5 mmol/L (3-11); BUN 14 mg/dL (7-18); Bilirubin, Total 0.6 mg/dL (0.2-1.0); CO2 28.5 mmol/L (21.0-32.0); CREATININE 0.9 mg/dL (0.55-1.02); Calcium 8.6 mg/dL (8.5-10.1); Chloride 105 mmol/L (98-107); Estimated GFR 74.57 (mL/min/1.73m2); Glucose 97 mg/dL (74-106); Potassium 3.9 mmol/L (3.5-5.1); Sodium 138 mmol/L (136-145); Total Protein 6.7 g/dL (6.4-8.2)
[2024-09-29 22:18] LABS: Total Protein 6.3 g/dL (6.3-8.2)
[2024-09-30 10:38] LABS: IgA 221 mg/dL (85-499); IgG 807 mg/dL (610-1616); IgM 58 mg/dL (35-242); Kappa Free Light Chain 1.41 mg/dL (0.33-1.94); Lambda Free Light Chain 1.31 mg/dL (0.57-2.63)
[2024-09-30 12:53] LABS: Albumin 62.2 % (55.8-66.1); Albumin g/dL 3.9 g/dL (3.6-5.2)
== END 2024-09-29 12:21 | disposition home or self-care (01) ==
LOC: LBO 12:21
PROVIDERS: PCP Family Medicine; Visit Provider Nurse Practitioner Family
DX: C90.01 Multiple myeloma in remission (principal)
CPT/HCPCS: 36415; 80053; 82784; 83883; 84165; 85025

== ENCOUNTER 2024-12-31 11:28 | Outpatient (CLI) | payer OTHER, SELFPAY ==
[2024-12-31 10:13] LABS: Abs Immature Grans 0.01 10^3/uL (0.0-0.06); HCT 40.2 % (36.0-46.0); HGB 13.3 g/dL (11.2-15.7); Immature Grans % 0.2 %; MCH 33.8 pg (27.0-33.0); MCHC 33.1 % (32.0-36.0); MCV 102 fL (80-95); MPV 9.4 fL (8.0-11.0); Platelet Count 204 10^3/uL (130-400); RBC 3.94 10^6/uL (3.93-5.22); RDW 13.2 % (11.7-14.6); RDW-SD 49.7 fL; WBC 4.64 10^3/uL (4.4-10.8)
[2024-12-31 10:51] LABS: ALT 27 U/L (14-59); AST 14 U/L (15-37); Albumin 3.4 g/dL (3.4-5.0); Alkaline Phosphatase 53 U/L (46-116); Anion Gap 4.1 mmol/L (3-11); BUN 15 mg/dL (7-18); Bilirubin, Total 0.4 mg/dL (0.2-1.0); CO2 29.9 mmol/L (21.0-32.0); Calcium 8.8 mg/dL (8.5-10.1); Chloride 106 mmol/L (98-107); Estimated GFR 100.81 (mL/min/1.73m2); Glucose 95 mg/dL (74-106); Potassium 4.1 mmol/L (3.5-5.1); Sodium 140 mmol/L (136-145); Total Protein 6.6 g/dL (6.4-8.2)
[2025-01-01 10:16] LABS: Kappa Free Light Chain 1.27 mg/dL (0.33-1.94); Lambda Free Light Chain 1.28 mg/dL (0.57-2.63)
[2025-01-01 12:39] LABS: Albumin 62.5 % (55.8-66.1); Albumin g/dL 4.0 g/dL (3.6-5.2); Alpha 1 g/dL 0.30 g/dL (0.15-0.40); Alpha 2 g/dL 0.50 g/dL (0.50-1.00); Beta g/dL 0.80 g/dL (0.60-1.20); Gamma g/dL 0.80 g/dL (0.60-1.60); Total Protein 6.4 g/dL (6.3-8.2)
== END 2024-12-31 11:29 | disposition home or self-care (01) ==
LOC: LBO 11:28
PROVIDERS: PCP Family Medicine; Visit Provider Nurse Practitioner Family
DX: C90.01 Multiple myeloma in remission (principal)
CPT/HCPCS: 36415; 80053; 82784; 83883; 84165; 85025

== ENCOUNTER 2025-01-06 15:36 | Outpatient (CLI) | payer OTHER, SELFPAY | END 2025-01-06 15:37 | disposition home or self-care (01) | LOC: LBO 15:36 | PROVIDERS: PCP Family Medicine; Visit Provider Internal Medicine Hematology & Oncology | DX: C90.01 Multiple myeloma in remission (principal) | CPT/HCPCS: 36415; 82784 ==

== ENCOUNTER 2025-03-30 12:17 | Outpatient (CLI) | payer MEDICARE, SELFPAY ==
[2025-03-30 15:52] LABS: Abs Immature Grans 0.00 10^3/uL (0.0-0.06); HCT 43.1 % (36.0-46.0); HGB 14.0 g/dL (11.2-15.7); Immature Grans % 0.0 %; MCH 33.1 pg (27.0-33.0); MCHC 32.5 % (32.0-36.0); MCV 102 fL (80-95); MPV 9.7 fL (8.0-11.0); Platelet Count 229 10^3/uL (130-400); RBC 4.23 10^6/uL (3.93-5.22); RDW 12.9 % (11.7-14.6); RDW-SD 48.1 fL; WBC 3.75 10^3/uL (4.4-10.8)
[2025-03-31 09:13] LABS: Kappa Free Light Chain 1.38 mg/dL (0.33-1.94); Lambda Free Light Chain 1.50 mg/dL (0.57-2.63)
[2025-03-31 12:45] LABS: Albumin 63.2 % (55.8-66.1); Albumin g/dL 4.3 g/dL (3.6-5.2); Alpha 1 g/dL 0.30 g/dL (0.15-0.40); Alpha 2 g/dL 0.50 g/dL (0.50-1.00); Beta g/dL 0.80 g/dL (0.60-1.20); Gamma g/dL 0.90 g/dL (0.60-1.60); Total Protein 6.8 g/dL (6.3-8.2)
== END 2025-03-30 12:18 | disposition home or self-care (01) ==
PROVIDERS: PCP Family Medicine; Visit Provider Nurse Practitioner Family
DX: C90.00 Multiple myeloma not having achieved remission (principal)
CPT/HCPCS: 82784; 83883; 84165; 85025

== ENCOUNTER 2025-03-31 12:22 | Outpatient (CLI) | payer MEDICARE, SELFPAY ==
[2025-03-31 12:28] LABS: ALT 19 U/L (10-49); AST 17 U/L (<34); Albumin 4.0 g/dL (3.2-5.0); Alkaline Phosphatase 56 U/L (46-116); Anion Gap 6.5 mmol/L (3-11); BUN 9 mg/dL (9-23); Bilirubin, Total 0.5 mg/dL (0.2-1.2); CO2 27.5 mmol/L (20.0-31.0); Calcium 8.6 mg/dL (8.3-10.6); Chloride 109 mmol/L (98-107); Glucose 90 mg/dL (74-106); Potassium 4.6 mmol/L (3.5-5.1); Sodium 143 mmol/L (136-145); Total Protein 6.7 g/dL (5.7-8.2)
== END 2025-03-31 12:23 | disposition home or self-care (01) ==
LOC: LBO 12:22
PROVIDERS: PCP Family Medicine; Visit Provider Nurse Practitioner Family
DX: C90.00 Multiple myeloma not having achieved remission (principal)
CPT/HCPCS: 80053